=== PATIENT | female | born 1985 | race African-American/Black ===

== ENCOUNTER 2017-03-02 23:39 | Emergency (ER) | payer SELFPAY ==
[2017-03-03] MEDS ORDERED: PREDNISONE 20 MG TABLET PO ONE (00:51)
[2017-03-03] MEDS ORDERED: PREDNISONE 20 MG TABLET ONE (00:55)
[2017-03-03 01:09] LABS: HEMATOCRIT 34.8 % (36.0-47.0); HEMOGLOBIN 11.5 g/dL (12.0-15.5); HGB HCT DIFFERENCE -0.3; MEAN CORPUSCULAR HEMOGLOBIN 30.6 pg (27.0-33.4); MEAN CORPUSCULAR HGB CONC 32.9 g/dL (32.0-36.0); MEAN CORPUSCULAR VOLUME 93 fl (80-97); RED BLOOD COUNT 3.75 10^6/uL (3.72-5.28); WHITE BLOOD COUNT 7.1 10^3/uL (4.0-10.5)
[2017-03-03 01:26] LABS: ALANINE AMINOTRANSFERASE 23 U/L (9-52); ALBUMIN 3.6 g/dL (3.5-5.0); ALKALINE PHOSPHATASE 23 U/L (38-126); ANION GAP 12 (5-19); ASPARTATE AMINO TRANSFERASE 21 U/L (14-36); BILIRUBIN,DIRECT 0.2 mg/dL (0.0-0.4); BILIRUBIN,TOTAL 0.4 mg/dL (0.2-1.3); BLOOD UREA NITROGEN 15 mg/dL (7-20); CALCIUM 9.4 mg/dL (8.4-10.2); CARBON DIOXIDE 24 mmol/L (22-30); CHLORIDE 103 mmol/L (98-107); CREATININE RESULT 0.73 mg/dL (0.52-1.25); GLUCOSE 87 mg/dL (75-110); SODIUM 139.3 mmol/L (137-145); TOTAL PROTEIN 6.7 g/dL (6.3-8.2)
--- NOTE | 2017-03-03 01:36 | ER Document Report ---
ED General - General Chief Complaint: Leg Swelling Stated Complaint: LEG PAIN Time Seen by Provider: 03/03/17 00:38 Notes: Patient is a 31-year-old female without past medical history presents with 3 days of a rash in her bilateral lower extremities with associated swelling and pain. Does describe multiple areas of small bruises without any trauma to the area. No history of similar symptoms in the past. She notes that in association with this pattern of bruising she has developed a dull, constant throbbing pain to her bilateral lower extremities. Nothing improves or worsens the pain. She has not seen a primary care doctor regarding today's concerns. She denies any use of anticoagulation or new medications. States other than the rash and leg pain she has no additional symptoms including any fever, nausea , vomiting, abdominal pain, weakness, numbness, or shortness of breath. No history of autoimmune disease. No recent infectious symptoms. Past Medical History - General Information source: Patient - Social History Smoking Status: Never Smoker Frequency of alcohol use: None Drug Abuse: None Lives with: Spouse/Significant other Family History: Reviewed & Not Pertinent Renal/ Medical History: Denies: Hx Peritoneal Dialysis Review of Systems - Review of Systems Notes: Constitutional: Negative for fever. HENT: Negative for sore throat. Eyes: Negative for visual changes. Cardiovascular: Negative for chest pain. Respiratory: Negative for shortness of breath. Gastrointestinal: Negative for abdominal pain, vomiting or diarrhea. Genitourinary: Negative for dysuria. Musculoskeletal: Negative for back pain. Skin: Positive for rash. Neurological: Negative for headaches, weakness or numbness. 10 point ROS negative except as marked above and in HPI. Physical Exam - Vital signs Vitals: Temp Pulse Resp BP Pulse Ox 98.6 F 70 16 123/74 100 03/02/17 23:43 03/02/17 23:43 03/02/17 23:43 03/02/17 23:43 03/02/17 23:43 Interpretation: Normal Notes: PHYSICAL EXAMINATION: GENERAL: Well-appearing, well-nourished and in no acute distress. HEAD: Atraumatic, normocephalic. EYES: Pupils equal round and reactive to light, extraocular movements intact, sclera anicteric, conjunctiva are normal. ENT: nares patent, oropharynx clear without exudates. Moist mucous membranes. NECK: Normal range of motion, supple without lymphadenopathy LUNGS: Breath sounds clear to auscultation bilaterally and equal. No wheezes rales or rhonchi. HEART: Regular rate and rhythm without murmurs ABDOMEN: Soft, nontender, normoactive bowel sounds. No guarding, no rebound. No masses appreciated. EXTREMITIES: Normal range of motion, no pitting or edema. No cyanosis. NEUROLOGICAL: No focal neurological deficits. Moves all extremities spontaneously and on command. PSYCH: Normal mood, normal affect. SKIN: Warm, Dry, normal turgor, multiple petechial lesions and several palpable purpura on the bilateral lower extremities without surrounding erythema Course - Re-evaluation Re-evalutation: 03/03/17 01:33 Patient presents with a rash for several palpable purpura over her bilateral lower extremities. She is otherwise extremely well in appearance and in no distress. Vitals within normal limits. Considerations include idiopathic thrombocytopenic purpura although she did not have any significant thrombocytopenia on labs. However this is early in the course of her developing this rash that is possible that her platelets have not yet reached a alize. I do not suspect an acute meningococcal infection given that patient has no tachycardia, fever, and is otherwise extremely well in appearance. She also denies any symptoms to suggest this diagnosis. Remainder of her laboratories are unremarkable and I do not suspect TTP or HUS. Will empirically start a seven-day course of steroids recommend close outpatient follow-up as well as strict return precautions. At this time will discharge with return precautions and follow-up recommendations. Verbal discharge instructions given a the bedside and opportunity for questions given. Medication warnings reviewed. Patient is in agreement with this plan and has verbalized understanding of return precautions and the need for primary care follow-up in the next 24-72 hours. - Vital Signs Vital signs: Temp Pulse Resp BP Pulse Ox 98.6 F 69 16 116/74 99 03/02/17 23:43 03/03/17 01:56 03/03/17 01:56 03/03/17 01:56 03/03/17 01:56 - Laboratory Result Diagrams: 03/03/17 01:02 03/03/17 01:02 Laboratory results interpreted by me: 03/03/17 03/03/17 01:02 01:02 Hgb 11.5 L Hct 34.8 L Alkaline Phosphatase 23 L Discharge - Discharge Clinical Impression: Purpura, Bilateral lower extremity pain Condition: Good Disposition: HOME, SELF-CARE Additional Instructions: Please take the steroids as directed. You may have something called ITP also known as idiopathic thrombocytopenic purpura. However, your labs at this time do not fully support this diagnosis and you will need close follow-up with your primary care doctor in the next several days. Return immediately to the emergency department if you develop a fever, worsening pain, become lethargic, or have any other symptoms that are worrisome to you. Prescriptions: Prednisone [Deltasone 20 mg Tablet] 3 tab PO DAILY 7 Days Kasey Attestation: 03/03/17 01:35
[2017-03-03 01:57] VITALS: BP 116/74
== END 2017-03-03 01:56 | disposition home or self-care (01) ==
LOC: ER 23:39
DX: D69.2 Other nonthrombocytopenic purpura (principal); M79.605 Pain in left leg; M79.604 Pain in right leg; M79.89 Other specified soft tissue disorders; R21 Rash and other nonspecific skin eruption
CPT/HCPCS: 99283; 36415; 85027; 80053; J7512